=== PATIENT | male | born 1945 | race Caucasian/White ===

== ENCOUNTER 2021-11-24 10:13 | Emergency (ER) | payer OTHER, MEDICARE | END 2021-11-24 16:36 | disposition home or self-care (01) | LOC: FER 10:13 | DX: T83.021A Displacement of indwelling urethral catheter, initial encounter (principal); Z88.5 Allergy status to narcotic agent; Y84.6 Urinary catheterization as the cause of abnormal reaction of the patient, or of later complication, without mention of misadventure at the time of the procedure ==

== ENCOUNTER 2021-12-19 14:07 | Inpatient (IN) | payer OTHER, MEDICARE ==
[~2021-12-19] VITALS: Ht 182.9 cm; Wt 94.5 kg
[2021-12-19 15:18] LABS: BASOPHIL 0.3 % (0-2); EOSINOPHIL 0.8 % (0-7); HCT 23.8 % (42.0-52.0); HGB 7.6 g/dl (13.2-18.0); MCH 28.1 pg (25.0-31.0); MCHC 31.9 g/dL (32.0-36.0); MCV 88.1 fL (78.0-100.0); MONOCYTE 3.3 % (0-12); MPV 11.5 fL (6.0-9.5); NEUTROPHIL 38.4 % (41-80); NRBC 0; PLT 240 K/uL (150-400); RDW 14.3 % (11.5-14.0); WBC 19.5 K/uL (4.0-10.5)
[2021-12-19 15:22] LABS: INR 2.52 (0.9-1.2); LYMPHOCYTE 56.6 % (15-48); PROTHROMBIN TIME 26.2 SECONDS (11.8-13.4)
[2021-12-19 15:23] LABS: PTT 58.7 SECONDS (24.4-34.7)
[2021-12-19 15:31] LABS: ALBUMIN 2.6 g/dL (3.4-5.0); BILIRUBIN - TOTAL 0.7 mg/dL (0.2-1.0); BUN/CREAT RATIO (CALC) 31.2 RATIO; CREATININE 1.99 mg/dL (0.67-1.17); GLOBULIN (CALCULATION) 3.8 g/dL; POTASSIUM 5.4 mmol/L (3.5-5.1); TOTAL PROTEIN 6.4 g/dL (6.4-8.2)
[2021-12-19 16:00] LABS: BILIRUBIN NEGATIVE (NEGATIVE); BLOOD TRACE-INTACT Ery/uL (NEGATIVE); CLARITY CLOUDY (CLEAR); COLOR YELLOW (YELLOW); GLUCOSE (U) NORMAL (NORMAL); LEUKOCYTES 3+ Leu/uL (NEGATIVE); NITRITE NEGATIVE (NEGATIVE); PROTEIN 1+ mg/dL (NEGATIVE); SPECIFIC GRAVITY <=1.005 (1.001-1.030); UROBILINOGEN 0.2 mg/dL (0.2-1.0); pH 8.5 (5.0-9.0)
[2021-12-19 16:36] LABS: TRIPLE PHOSPHATE CRYSTALS LARGE
[2021-12-19 16:38] LABS: AMORPHOUS PHOSPHATE CRYSTALS MODERATE; BACTERIA 2+
[2021-12-19] MEDS ORDERED: LIPITOR20 MG PO (19:18)
[2021-12-19] MEDS ORDERED: CELEXA20 MG PO (19:19)
[2021-12-19] MEDS ORDERED: COREG 3.125M3.125 MG PO (19:19)
[2021-12-19] MEDS ORDERED: LOVENOX80 MG/0.8 SC (19:20)
[2021-12-19] MEDS ORDERED: ATARAX25 MG PO (19:20)
[2021-12-19] MEDS ORDERED: FLOMAX0.4 MG PO (19:21)
[2021-12-19] MEDS ORDERED: REMERON15 MG PO (19:21)
[2021-12-19] MEDS ORDERED: PROTONIX 40MG T40 MG PO (19:21)
[2021-12-19] MEDS ORDERED: TRIMETHOPRIM100 MG PO (19:22)
[2021-12-19] MEDS ORDERED: WARFARIN SODIUM4 MG PO (19:25)
[2021-12-19] MEDS ORDERED: WARFARIN SODIUM5 MG PO (19:26)
[2021-12-19] MEDS ORDERED: ACETAMINOPHEN325 MG PO (19:27)
[2021-12-19] MEDS ORDERED: BACITRACIN15 GM TOP (19:29)
[2021-12-20 06:24] LABS: BASOPHIL 0.3 % (0-2); EOSINOPHIL 2.5 % (0-7); HCT 21.2 % (42.0-52.0); HGB 6.6 g/dl (13.2-18.0); INR 2.86 (0.9-1.2); LYMPHOCYTE 60.7 % (15-48); MCHC 31.1 g/dL (32.0-36.0); MCV 89.8 fL (78.0-100.0); MONOCYTE 3.7 % (0-12); MPV 11.3 fL (6.0-9.5); NEUTROPHIL 32.3 % (41-80); NRBC 0; PLT 235 K/uL (150-400); RBC 2.36 M/uL (4.70-6.00); RDW 14.1 % (11.5-14.0); WBC 16.5 K/uL (4.0-10.5)
[2021-12-20 06:51] LABS: IRON % SATURATION 18.6 %SAT (20-50)
[2021-12-20 07:21] LABS: BUN/CREAT RATIO (CALC) 29.9 RATIO; CREATININE 1.94 mg/dL (0.67-1.17); POTASSIUM 4.7 mmol/L (3.5-5.1)
[2021-12-21 06:44] LABS: BASOPHIL 0.2 % (0-2); EOSINOPHIL 2.1 % (0-7); HCT 26.3 % (42.0-52.0); MCH 28.7 pg (25.0-31.0); MCHC 32.7 g/dL (32.0-36.0); MCV 87.7 fL (78.0-100.0); MONOCYTE 4.1 % (0-12); MPV 10.5 fL (6.0-9.5); NEUTROPHIL 26.8 % (41-80); NRBC 0; PLT 229 K/uL (150-400); RDW 14.1 % (11.5-14.0); WBC 17.9 K/uL (4.0-10.5)
[2021-12-21 06:46] LABS: HGB 8.6 g/dl (13.2-18.0); LYMPHOCYTE 65.8 % (15-48)
[2021-12-21 06:49] LABS: INR 2.5 (0.9-1.2); PROTHROMBIN TIME 26.1 SECONDS (11.8-13.4)
[2021-12-21 07:00] LABS: BUN/CREAT RATIO (CALC) 29.5 RATIO; CREATININE 1.83 mg/dL (0.67-1.17); POTASSIUM 4.5 mmol/L (3.5-5.1)
[2021-12-21] MEDS ORDERED: BACTRIM DS TAB1 EACH PO (10:09)
[2021-12-21] MEDS ORDERED: FOLIC ACID1 MG PO (10:09)
[2021-12-21] MEDS ORDERED: LEVAQUIN500 MG PO (10:09)
[2021-12-21] MEDS ORDERED: FEOSOL325 MG PO (10:10)
[2021-12-21] MEDS ORDERED: MEROPENEM500 MG IV (10:32)
--- NOTE | 2021-12-21 10:44 | NUR ---
12/21/21 Mr. Madrigal was admitted from [facility]. [facility] will accept back per Nelda Ownes. Mr. Madrigal and his son, Gene Madrigal, also intend for him to return to [facility]. Report given to MS ANDRIA Durham.
--- NOTE | 2021-12-22 11:37 | NUR ---
12/22/21 Nela Prakash RN, reports that [facility] is requesting clarification re: IV antibiotic orders. Dr. Javier provided clarification to SAMANTHA Angel.
== END 2021-12-21 17:32 | DRG 699 ==
LOC: FER 14:07 → FMS 16:50
PROVIDERS: Emergency Medicine; ADMIT Family Medicine
PROC: 30233N1 Transfusion of Nonautologous Red Blood Cells into Peripheral Vein, Percutaneous Approach (ICD-10-PCS; principal; 2021-12-20)
DX: T83.511A Infection and inflammatory reaction due to indwelling urethral catheter, initial encounter (principal); N30.00 Acute cystitis without hematuria; N17.9 Acute kidney failure, unspecified; Z16.12 Extended spectrum beta lactamase (ESBL) resistance; D50.9 Iron deficiency anemia, unspecified; Z20.822 Contact with and (suspected) exposure to COVID-19; B96.5 Pseudomonas (aeruginosa) (mallei) (pseudomallei) as the cause of diseases classified elsewhere; N31.9 Neuromuscular dysfunction of bladder, unspecified; R73.9 Hyperglycemia, unspecified; I48.91 Unspecified atrial fibrillation; F03.90 Unspecified dementia, unspecified severity, without behavioral disturbance, psychotic disturbance, mood disturbance, and anxiety; E87.5 Hyperkalemia; Z96.652 Presence of left artificial knee joint; Z98.890 Other specified postprocedural states; Z87.891 Personal history of nicotine dependence
CPT/HCPCS: 36415; 36430; 71045; 80048; 80053; 81001; 82270; 82550; 82607; 83036; 83540; 83550; 83605; 83880; 84145; 84443; 84484; 85025; 85610; 85730; 86850; 86900; 86901; 86922; 87040; 87076; 87088; 87186; 93005; 97162; 97165; 97530-GP; 97535; J0696; J2185; J2916; J7030; P9016; U0002